=== PATIENT | male | born 1960 | race Caucasian/White ===

== ENCOUNTER 2019-04-28 23:58 | Emergency (ER) | payer OTHER ==
[~2019-04-28] VITALS: Ht 177.8 cm; Wt 75.3 kg
[2019-04-29 00:03] VITALS: Ht 177.8 cm; Wt 75.3 kg
[2019-04-29 03:16] LABS: microscopic required? YES; urine erythrocyte TRACE (NEGATIVE)
[2019-04-29 05:37] VITALS: BP 128/68
== END 2019-04-29 05:37 | disposition home or self-care (01) ==
LOC: ED 23:58
PROVIDERS: Emergency Medicine
DX: N50.89 Other specified disorders of the male genital organs (principal); N39.0 Urinary tract infection, site not specified; M54.9 Dorsalgia, unspecified
CPT/HCPCS: 87491; 87591; J0696; J1885; Q0092